=== PATIENT | female | born 1995 | race Caucasian/White ===

== ENCOUNTER 2020-12-25 14:46 | Emergency (ER) | payer SELFPAY ==
[2020-12-25 14:50] VITALS: PULSE 83; O2SAT 96
[2020-12-25 14:53] VITALS: BP 127/67; PULSE 78; RESP 20; TEMP 37.1; O2SAT 96; BMI 26.9
[2020-12-25 15:00] VITALS: BP 96/57; PULSE 77; O2SAT 95
--- NOTE | 2020-12-25 15:12 | ED.NAVMDI ---
HPI - Nausea/Vomiting/Diarrhea General Chief complaint: Nausea/Vomiting/Diarrhea Stated complaint: 18 wks needs medication Time Seen by Provider: 12/25/20 14:50 Source: patient Mode of arrival: Ambulatory Limitations: no limitations History of Present Illness HPI Narrative: 25-year-old at 18 weeks gestational age. She currently is living in [place] and had to return urgently to the [facility] for a family matter and was not able to bring her nausea medicine with her on the plane. She states that Zofran has worked well in the past. With the 1st she she did have hyperemesis gravidarum. She states that this is certainly better but she continues to vomit multiple times a day. She is asking for help in obtaining nausea medication. She describes no fevers, cough, chills, diarrhea. She does note active movement. She is voiding and stooling appropriately. No rashes. No palpitations and no syncope. Related Data Previous Rx's Medication Instructions Recorded norgestimate-ethinyl estradiol 1 tab PO QDAY #1 packet 07/23/18 0.18 mg/0.215mg/0.25mg-35 mcg(28)tablet docusate sodium 250 mg capsule 250 mg PO BEDTIME #30 cap 08/07/18 hydrocortisone 2.5 % topical cream 1 applictn MD BID-QID PRN #30 gram 08/07/18 with perineal applicator ondansetron 4 mg PO Q8H PRN #30 tab 12/25/20 Allergies Allergy/AdvReac Type Severity Reaction Status Date / Time Sulfa (Sulfonamide Allergy Unknown Verified 12/25/20 14:52 Antibiotics) Review of Systems Review of Systems Narrative: Remainder of complete review of systems is otherwise unremarkable except for that included in the HPI. Patient History Surgical History History of third molar tooth extraction Social History Smoking Status: Former smoker Smoking Status: Former smoker alcohol intake frequency: other Substance Use Type: does not use Exam Narrative Exam Narrative: General: Alert, appears fatigued but otherwise appropriate in no acute distress Respiratory: Able to speak in full sentences, no obvious respiratory distress Skin: No obvious rashes, warm and dry Neurologic: Grossly intact no obvious asymmetries or abnormalities Psych: appropriate insight and affect, cooperative Initial Vital Signs Initial Vital Signs: Vital Signs Pulse Rate 83 12/25/20 14:50 Pulse Oximetry 96 12/25/20 14:50 Course Orders Ordered: Discontinued Medications Ondansetron HCl (Ondansetron 4 Mg Odt) 4 mg SL NOW ONE Stop: 12/25/20 15:41 Last Admin: 12/25/20 15:48 Dose: 4 mg Documented by: EARNEST Vital Signs Vital signs: Vital Signs - 8 hr 12/25/20 14:50 12/25/20 14:53 12/25/20 15:00 Temperature 98.8 F Pulse Rate 83 78 77 Respiratory Rate 20 Blood Pressure 127/67 96/57 L Pulse Oximetry 96 96 95 12/25/20 15:30 Temperature Pulse Rate 71 Respiratory Rate Blood Pressure 101/57 L Pulse Oximetry 96 MDM - Nausea/Vomiting/Diarrhea MDM Narrative Medical decision making narrative: related nausea and asking for prescription for nausea medication. Her current medical care is in [facility] and she is in town only for the next 2 weeks. She is given a dose of zofran in the ER with good response. She is safe for home discharge Discharge Plan Departure Patient Disposition: Home Clinical Impression: Nausea and vomiting during Instructions: DI for Hyperemesis Gravidarum Activity Restrictions/Additional Instructions: Thank you for coming in I hope you feel better with the zofran/ondansetron to help with your nausea. I hope the rest of your goes well Prescriptions: New ondansetron 4 mg tablet,disintegrating 4 mg PO Q8H PRN (Reason: nausea and vomiting) Qty: 30 RF: 0 No Action norgestimate-ethinyl estradiol [Ortho Tri-Cyclen (28)] 0.18/0.215/0.25 mg-35 mcg (28) tablet 1 tab PO QDAY Qty: 1 RF: 6 docusate sodium 250 mg capsule 250 mg PO BEDTIME Qty: 30 RF: 3 hydrocortisone [Anusol-HC] 2.5 % cream with perineal applicator 1 applictn MD BID-QID PRN (Reason: hemorrhoids) Qty: 30 RF: 2
[2020-12-25 15:30] VITALS: BP 101/57; PULSE 71; O2SAT 96
[2020-12-25] MEDS: ONDANSETRON 4 MG ODT SL (15:48)
== END 2020-12-25 15:56 | disposition home or self-care (01) ==
PROVIDERS: Emergency Provider Emergency Medicine
DX: O26.892 Other specified pregnancy related conditions, second trimester (principal); R11.2 Nausea with vomiting, unspecified; Z3A.18 18 weeks gestation of pregnancy
CPT/HCPCS: 99282; 99283

== ENCOUNTER → 2024-03-15 10:37 | Outpatient (CLI) | payer OTHER, MEDICAID, SELFPAY | PROVIDERS: PCP Family Medicine; Referring Provider Nurse Practitioner Family; Visit Provider Nurse Practitioner Family | DX: J02.9 Acute pharyngitis, unspecified (principal) | CPT/HCPCS: 87070 ==

== ENCOUNTER → 2024-07-23 11:12 | Outpatient (CLI) | payer OTHER, SELFPAY ==
--- NOTE | 2024-07-23 11:13 | DI.MRI.S_ITS ---
PROCEDURE: MR HEAD/BRAIN WO/W CON INDICATIONS: Petit Mal, forgetfullness TECHNIQUE: Noncontrast axial T1 spin echo, axial T2 fast spin echo, sagittal and axial FLAIR, coronal T2 fast spin echo, axial gradient echo, axial diffusion and ADC through the brain. After the administration of contrast, axial and coronal and sagittal 3D VIBE or T1 spin echo with fat saturation through the brain. COMPARISON: None. FINDINGS: CSF Spaces: Basal cisterns are patent. No extra-axial fluid collections. Ventricles are normal in size and shape. Brain: No intracranial masses or hemorrhage. Enriquez/white matter interface is normal. Brainstem appears normal. Diffusion-weighted sequence is unremarkable without evidence of acute infarct. Normal intravascular flow voids are present. Auto text hippocampus Skull and face: Calvarial marrow is normal in signal. Orbits appear normal. Sinuses: Sinuses and mastoids appear clear. IMPRESSION: Normal MRI of the brain with and without contrast Approved by: Joaquin Gonzalez M.D. on 07/23/2024 at 16:55
== END ==
PROVIDERS: PCP Family Medicine; Referring Provider Family Medicine; Visit Provider Family Medicine
DX: G40.A09 Absence epileptic syndrome, not intractable, without status epilepticus (principal); R68.89 Other general symptoms and signs
CPT/HCPCS: 70553; A9579

== ENCOUNTER → 2024-10-07 08:30 | Outpatient (CLI) | payer OTHER, SELFPAY ==
[2024-10-07 09:24] LABS: Influenza A - CEPHEID Flu A NEGATIVE (NEGATIVE); Influenza B - CEPHEID Flu B NEGATIVE (NEGATIVE); Respiratory Syncytial Virus Negative (Negative)
[2024-10-07 09:30] LABS: COVID-19 CEPHEID 4-PLEX PCR Negative (Negative)
== END ==
PROVIDERS: PCP Family Medicine; Visit Provider Nurse Practitioner Family
DX: R05.1 Acute cough (principal)
CPT/HCPCS: 87635; 87400 ×2; 87420; 0241U

== ENCOUNTER → 2024-10-08 13:18 | Outpatient (CLI) | payer OTHER, SELFPAY ==
--- NOTE | 2024-10-08 13:19 | DI.RAD.S_ITS ---
PROCEDURE: XR CHEST 2V INDICATIONS: Cough TECHNIQUE: 2 views of the chest were acquired. COMPARISON: None. FINDINGS: Heart, mediastinum and pulmonary vascular: Heart is normal in size and configuration. Mediastinum is unremarkable. Pulmonary vascular is normal. Lungs: Small right lower lobe infiltrate appreciated Pleural spaces: Normal-no effusions or pneumothorax. Bones and soft tissues: Normal IMPRESSION: Small right lower lobe infiltrate Dictated by: Davey Hunt M.D. on 10/09/2024 at 7:45 Approved by: Davey Hunt M.D. on 10/09/2024 at 7:45
== END ==
PROVIDERS: PCP Family Medicine; Referring Provider Nurse Practitioner Family; Visit Provider Nurse Practitioner Family
DX: R05.9 Cough, unspecified (principal); R91.8 Other nonspecific abnormal finding of lung field
CPT/HCPCS: 71046

== ENCOUNTER 2025-02-05 13:00 | Outpatient (RCR) | payer OTHER, SELFPAY ==
--- NOTE | 2024-12-17 11:05 | PT.OIE ---
Current Diagnoses Dorsalgia, unspecified (12/17/24) Past Medical History (Last Updated 02/02/24 @ 20:34 by Lynn Tejada) Asthma (~2006) Irregular menstrual cycle (~2004) Kidney stones (~2001) Past Surgical History (Last Updated 02/02/24 @ 20:34 by Lynn Tejada) Anesthesia Broken arm (~2005) History of section (~06/09/21) History of third molar tooth extraction Hx of breast reduction, elective (~07/14/23) Visit Care Team Role Provider Type Yris Blackman MD Attending Provider Physician Family Provider Primary Care Provider Referring Provider Specialty: [facility] WAREHOUSE TEAM MEMBER Address: [address] [place] [address], [facility] Email: [email or web address] Physical Therapy Initial Evaluation PT-OP-A Visit Information Start: 12/01/24 20:52 Freq: Status: Active Protocol: Document 12/17/24 09:04 MB (Rec: 12/17/24 09:44 MB Desktop) Out-Patient Physical Therapy Visit Information Visit Information Visit Type Initial Evaluation Visit Note 08/04 allowed visits for the year Pt is late to eval Visit Start Time 09:04 Visit Stop Time 09:43 Visit Number 1 Number of EDUCATOR SENIOR CLINICAL Visits 0 Evaluation Information Evaluation Date 12/17/24 PT-OP-B Current Condition Start: 12/01/24 20:52 Freq: Status: Active Protocol: Document 12/17/24 09:04 MB (Rec: 12/17/24 09:44 MB Desktop) Current Condition History of Current Condition Onset Date Years of left intrascapular pain Current Complaints Left intrascapular pain History of Current Condition Pt reports years of left intrascapular pain. She can stand up but has pain with sitting and has to lean forward or cross her right leg over her left. She had breast reduction to help 1-2 years ago and it helped a little bit . She has had no PT or other exercises. She does occ use a massager and does not use ice or heat. She uses icy hot. She is sleeping on left side mostly. She tends to put both hands up under her pillow. Pt usually carries her 3 y/o son on her left side. Pt denies headaches and she occ has different sensations in that area of her spine: water dripping on back, someone touching her back, less sensation. She occ gets a numbing down her arm to her elbow but never to her fingers . She is right handed. Pt states that she feels like she needs to pop her LB if standing too long and she also feels like she needs to pop her left shoulder and neck often when sitting. Treatment Goals Patient/Caregiver Goals To decrease pain PT-OP-C Subjective Start: 12/01/24 20:52 Freq: Status: Active Protocol: Document 12/17/24 09:04 MB (Rec: 12/17/24 09:44 MB Desktop) OP-PT Subjective Patient Comments Patient Comments See history of current condition PT-OP-J Posture/Palpation/Skin Start: 12/01/24 20:52 Freq: Status: Active Protocol: Document 12/17/24 09:04 MB (Rec: 12/17/24 09:44 MB Desktop) Posture Evaluation Comments Posture Comments Standing posture in socks: B rounded shoulders, greater on the left, more severe forward head for age though tragus is not too far in front of tragus given forward and rounded shoulder as well, increased thoracic kyphosis and tension in thoracic spine, increased sway back lower spine, left iliac crest is mildly higher than the right, increased valgus and overpronation right ankle. Cervical ROM in standing: extension 20 deg, flexion 35 deg, right rotation 60 deg and left rotation 50 deg, SB right 15 deg and left 20 deg. Right flexion and abduction shoulder AROM mildly stiffer than the left. Sitting thoracic rotation: B reduced and left rotation is about 10 deg more reduced than the right PT-OP-M Strength Start: 12/01/24 20:52 Freq: Status: Active Protocol: Document 12/17/24 09:04 MB (Rec: 12/17/24 09:44 MB Desktop) Shoulder Strength Shoulder Manual Muscle Testing Left Flexion 5 Normal Abduction (C5) 5 Normal External Rotation 5 Normal Internal Rotation 5 Normal Right Flexion 5 Normal Abduction (C5) 5 Normal External Rotation 5 Normal Internal Rotation 5 Normal Elbow/Forearm Strength Elbow and Forearm Manual Muscle Testing Bilateral Flexion (C6) 5 Normal Extension (C7) 5 Normal PT-OP-Q Treatments Start: 12/01/24 20:52 Freq: Status: Active Protocol: Document 12/17/24 09:04 MB (Rec: 12/17/24 09:44 MB Desktop) Manual Therapy Treatment Consent Patient gave verbal consent for manual Yes treatment Other Other Manual Treatments Pt supine with head and legs supported: STM and positional release B upper traps, grade II PA cervical mobs, positional release left ribs, STM left infra and levator, increased rib tension left upper ribs including first rib Self-Care/Home Management Treatment Education Patient Education Body Mechanics,Home Exercise Program,Joint Protection,Pain Management,Posture Other Education Ed pt on benefits of sleeping on side with proper pillow support under hand and between arms to help relax neck and intrascapular area, benefits of ice and heat, provided handout on how heavy is my head and discussed working on better posture to unweight/ unburden intrascapular and neck muscles, log rolling PT-OP-T Assessment and Plan Start: 12/01/24 20:52 Freq: Status: Active Protocol: Document 12/17/24 09:04 MB (Rec: 12/17/24 09:44 MB Desktop) Physical Therapy Assessment Rehab Potential Rehabilitation Potential Good Evaluation Complexity Number of Personal Factors/Comorbidities 1-2 Number of Body Systems Impaired 1-2 Clinical Presentation at Evaluation Evolving Impairments Impairments Pain,Posture,ROM,Sensation, Soft Tissue Mobility Goals Three Impairment Lack of HEP Refueling Ramp Supervisor Goal (LTG) Pt will perform progressive HEP with I including flexibility, breathing, self- massage, postural and strengthening exercises to improve symptomology. LTG Duration 8 weeks Two Impairment Decreased cervical and thoracic rotation Refueling Ramp Supervisor Goal (LTG) Pt will present with equal and pain-free B cervical and thoracic rotation AROM to improve scanning with driving and walking. LTG Duration 8 weeks One Impairment Left intrascapular pain Penitentiary Goal (LTG) Pt will report a 90% improvement in left intrascapular pain to improve quality of life. LTG Duration 8 weeks Assessment Summary Assessment Pt is a 29 y/o female presenting with postural changes including forward head , increased thoracic kyphosis, thoracic and rib stiffness in setting of long history of left intrascapular pain. Pt underwent breast reduction which did not alleviate symptoms in left scapular area when sitting. She often feels like and does pop her LB, left shoulder and cervical spine. Pt presents with decreased cervical and thoracic AROM and normal shoulder strength in range. She will benefit from manual, education and therapeutic exercise interventions to improve posture, flexibility and pain. Physical Therapy Plan Frequency and Duration Frequency of Treatment 1-2x/wk Duration of treatment (weeks) 8 Plan of Care Start Date 12/17/24 Plan of Care End Date 02/17/25 Therapeutic Interventions Therapeutic Interventions Home Exercise Program,Joint Mobilizations,Manual Therapy, Patient/Caregiver Education, Self-Care/Home Management, Sensory Integration,Soft Tissue Mobilization,Taping, Therapeutic Exercises Modalities Cold Pack/Ice Massage,Electric Stimulation,Hot Packs, Ultrasound Next Visit Focus/Plan Next Note Type Treatment Note Next Visit Plan Manual work and initiate thoracic mobilization like open book, try pool noodle for stretching over as well
--- NOTE | 2024-12-17 11:06 | PT.OPPOC ---
Physical, Occupational & Speech Therapy At [facility] Current Diagnoses Dorsalgia, unspecified (12/17/24) Visit Care Team Role Provider Type Yris Blackman MD Attending Provider Physician Family Provider Primary Care Provider Referring Provider Specialty: Family Practice MALT SPECIFICATIONS CONTROL ASSISTANT Address: [facility] [address] [facility] [place], [address] Email: [email or web address] Plan Of Care PT-OP-B Current Condition Start: 12/01/24 20:52 Freq: Status: Active Protocol: Document 12/17/24 09:04 MB (Rec: 12/17/24 09:44 MB Desktop) Current Condition History of Current Condition Onset Date Years of left intrascapular pain Current Complaints Left intrascapular pain History of Current Condition Pt reports years of left intrascapular pain. She can stand up but has pain with sitting and has to lean forward or cross her right leg over her left. She had breast reduction to help 1-2 years ago and it helped a little bit . She has had no PT or other exercises. She does occ use a massager and does not use ice or heat. She uses icy hot. She is sleeping on left side mostly. She tends to put both hands up under her pillow. Pt usually carries her 3 y/o son on her left side. Pt denies headaches and she occ has different sensations in that area of her spine: water dripping on back, someone touching her back, less sensation. She occ gets a numbing down her arm to her elbow but never to her fingers . She is right handed. Pt states that she feels like she needs to pop her LB if standing too long and she also feels like she needs to pop her left shoulder and neck often when sitting. Treatment Goals Patient/Caregiver Goals To decrease pain PT-OP-T Assessment and Plan Start: 12/01/24 20:52 Freq: Status: Active Protocol: Document 12/17/24 09:04 MB (Rec: 12/17/24 09:44 MB Desktop) Physical Therapy Assessment Rehab Potential Rehabilitation Potential Good Evaluation Complexity Number of Personal Factors/Comorbidities 1-2 Number of Body Systems Impaired 1-2 Clinical Presentation at Evaluation Evolving Impairments Impairments Pain,Posture,ROM,Sensation, Soft Tissue Mobility Goals Three Impairment Lack of HEP Sausage Smoker Goal (LTG) Pt will perform progressive HEP with I including flexibility, breathing, self- massage, postural and strengthening exercises to improve symptomology. LTG Duration 8 weeks Two Impairment Decreased cervical and thoracic rotation Sausage Smoker Goal (LTG) Pt will present with equal and pain-free B cervical and thoracic rotation AROM to improve scanning with driving and walking. LTG Duration 8 weeks One Impairment Left intrascapular pain Assisted Goal (LTG) Pt will report a 90% improvement in left intrascapular pain to improve quality of life. LTG Duration 8 weeks Assessment Summary Assessment Pt is a 29 y/o female presenting with postural changes including forward head , increased thoracic kyphosis, thoracic and rib stiffness in setting of long history of left intrascapular pain. Pt underwent breast reduction which did not alleviate symptoms in left scapular area when sitting. She often feels like and does pop her LB, left shoulder and cervical spine. Pt presents with decreased cervical and thoracic AROM and normal shoulder strength in range. She will benefit from manual, education and therapeutic exercise interventions to improve posture, flexibility and pain. Physical Therapy Plan Frequency and Duration Frequency of Treatment 1-2x/wk Duration of treatment (weeks) 8 Plan of Care Start Date 12/17/24 Plan of Care End Date 02/17/25 Therapeutic Interventions Therapeutic Interventions Home Exercise Program,Joint Mobilizations,Manual Therapy, Patient/Caregiver Education, Self-Care/Home Management, Sensory Integration,Soft Tissue Mobilization,Taping, Therapeutic Exercises Modalities Cold Pack/Ice Massage,Electric Stimulation,Hot Packs, Ultrasound Next Visit Focus/Plan Next Note Type Treatment Note Next Visit Plan Manual work and initiate thoracic mobilization like open book, try pool noodle for stretching over as well Plan of Care Dates Plan of Care Start Date 12/17/24 Plan of Care End Date 02/17/25 Electronically Signed by: Alivia Roberts PT 12/17/24 0841 If you are in agreement with this Plan of Care, please return a signed and dated copy. I have reviewed this Plan of Care and certify that the skilled therapy services above are required to meet the patient?s needs. Physician Signature Date Printed Name and Credentials Clinical Instructor Signature Printed Name and Credentials
--- NOTE | 2024-12-25 16:15 | PT.OTN ---
Current Diagnoses Dorsalgia, unspecified (12/17/24) Physical Therapy Treatment Note PT-OP-A Visit Information Start: 12/01/24 20:52 Freq: Status: Active Protocol: Document 12/25/24 15:31 MB (Rec: 12/25/24 16:11 MB Desktop) Out-Patient Physical Therapy Visit Information Visit Information Visit Type Treatment Note Visit Note 08/04 allowed visits for the year Visit Start Time 15:31 Visit Stop Time 16:11 Visit Number 2 Number of ORTHOPEDIC NURSE Visits 0 Evaluation Information Evaluation Date 12/17/24 PT-OP-B Current Condition Start: 12/01/24 20:52 Freq: Status: Active Protocol: Document 12/17/24 09:04 MB (Rec: 12/17/24 09:44 MB Desktop) Current Condition History of Current Condition Onset Date Years of left intrascapular pain Current Complaints Left intrascapular pain History of Current Pt reports years of left intrascapular pain. She can Condition stand up but has pain with sitting and has to lean forward or cross her right leg over her left. She had breast reduction to help 1-2 years ago and it helped a little bit. She has had no PT or other exercises. She does occ use a massager and does not use ice or heat. She uses icy hot. She is sleeping on left side mostly. She tends to put both hands up under her pillow. Pt usually carries her 3 y/o son on her left side. Pt denies headaches and she occ has different sensations in that area of her spine: water dripping on back, someone touching her back, less sensation. She occ gets a numbing down her arm to her elbow but never to her fingers. She is right handed. Pt states that she feels like she needs to pop her LB if standing too long and she also feels like she needs to pop her left shoulder and neck often when sitting. Treatment Goals Patient/Caregiver To decrease pain Goals PT-OP-C Subjective Start: 12/01/24 20:52 Freq: Status: Active Protocol: Document 12/25/24 15:31 MB (Rec: 12/25/24 16:11 MB Desktop) OP-PT Subjective Patient Comments Patient Comments Pt felt good after the eval and she is working on her sleeping position. PT-OP-J Posture/Palpation/Skin Start: 12/01/24 20:52 Freq: Status: Active Protocol: Document 12/17/24 09:04 MB (Rec: 12/17/24 09:44 MB Desktop) Posture Evaluation Comments Posture Comments Standing posture in socks: B rounded shoulders, greater on the left, more severe forward head for age though tragus is not too far in front of tragus given forward and rounded shoulder as well, increased thoracic kyphosis and tension in thoracic spine, increased sway back lower spine, left iliac crest is mildly higher than the right, increased valgus and overpronation right ankle. Cervical ROM in standing: extension 20 deg, flexion 35 deg, right rotation 60 deg and left rotation 50 deg, SB right 15 deg and left 20 deg. Right flexion and abduction shoulder AROM mildly stiffer than the left. Sitting thoracic rotation: B reduced and left rotation is about 10 deg more reduced than the right PT-OP-M Strength Start: 12/01/24 20:52 Freq: Status: Active Protocol: Document 12/17/24 09:04 MB (Rec: 12/17/24 09:44 MB Desktop) Shoulder Strength Shoulder Manual Muscle Testing Left Flexion 5 Normal Abduction (C5) 5 Normal External Rotation 5 Normal Internal Rotation 5 Normal Right Flexion 5 Normal Abduction (C5) 5 Normal External Rotation 5 Normal Internal Rotation 5 Normal Elbow/Forearm Strength Elbow and Forearm Manual Muscle Testing Bilateral Flexion (C6) 5 Normal Extension (C7) 5 Normal PT-OP-Q Treatments Start: 12/01/24 20:52 Freq: Status: Active Protocol: Document 12/25/24 15:31 MB (Rec: 12/25/24 16:11 MB Desktop) Therapeutic Exercises Supine Exercises Open book Supine Exercise Name HEP and handout given today Side bilateral Reps/Minutes 5 reps on each side today Pect stretch over pool noodle or foam roller Supine Exercise Name HEP and handout given today Comments Ed for pelvic tilt and knees bent Manual Therapy Treatment Consent Patient gave verbal Yes consent for manual treatment Other Other Manual Pt prone: rib recoil muscle energy technique in prone, Treatments scapular mobs, STM B upper traps and infra, TrP left subscap and B upper traps. Pt supine: STM right greater than left pect major, STM B SCM, more on the right, suboccipital release PT-OP-T Assessment and Plan Start: 12/01/24 20:52 Freq: Status: Active Protocol: Document 12/25/24 15:31 MB (Rec: 12/25/24 16:11 MB Desktop) Physical Therapy Assessment Rehab Potential Rehabilitation Good Potential Evaluation Complexity Number of Personal 1-2 Factors/ Comorbidities Number of Body 1-2 Systems Impaired Clinical Evolving Presentation at Evaluation Impairments Impairments Pain,Posture,ROM,Sensation,Soft Tissue Mobility Goals Three Impairment Lack of HEP Mcc Goal (LTG) Pt will perform progressive HEP with I including flexibility, breathing, self-massage, postural and strengthening exercises to improve symptomology. LTG Duration 8 weeks Two Impairment Decreased cervical and thoracic rotation Mcc Goal (LTG) Pt will present with equal and pain-free B cervical and thoracic rotation AROM to improve scanning with driving and walking. LTG Duration 8 weeks One Impairment Left intrascapular pain Sail Finisher Machine Goal (LTG) Pt will report a 90% improvement in left intrascapular pain to improve quality of life. LTG Duration 8 weeks Assessment Summary Assessment Initiated manual work today and exercises and pt tolerates well. Physical Therapy Plan Frequency and Duration Frequency of 1-2x/wk Treatment Duration of 8 treatment (weeks) Plan of Care Start 12/17/24 Date Plan of Care End 02/17/25 Date Therapeutic Interventions Therapeutic Home Exercise Program,Joint Mobilizations,Manual Interventions Therapy,Patient/Caregiver Education,Self-Care/Home Management,Sensory Integration,Soft Tissue Mobilization ,Taping,Therapeutic Exercises Modalities Cold Pack/Ice Massage,Electric Stimulation,Hot Packs, Ultrasound Next Visit Focus/Plan Next Note Type Treatment Note Next Visit Plan Con't manual work and progress intrascapular and shoulder strengthening with band, over pool noodle or foam roller and also standing, consider racquet ball massage against wall, consider anterior neck stretch, upper cervical isometric and anterior neck stretching
--- NOTE | 2025-01-01 14:27 | PT.OTN ---
Current Diagnoses Dorsalgia, unspecified (01/01/25) Physical Therapy Treatment Note PT-OP-A Visit Information Start: 12/01/24 20:52 Freq: Status: Active Protocol: Document 01/01/25 13:43 MB (Rec: 01/01/25 14:26 MB Desktop) Out-Patient Physical Therapy Visit Information Visit Information Visit Type Treatment Note Visit Note 3/12 allowed visits for the year Visit Start Time 13:43 Visit Stop Time 14:23 Visit Number 3 Number of STAKING ENGINEER Visits 0 Evaluation Information Evaluation Date 12/17/24 PT-OP-B Current Condition Start: 12/01/24 20:52 Freq: Status: Active Protocol: Document 12/17/24 09:04 MB (Rec: 12/17/24 09:44 MB Desktop) Current Condition History of Current Condition Onset Date Years of left intrascapular pain Current Complaints Left intrascapular pain History of Current Pt reports years of left intrascapular pain. She can Condition stand up but has pain with sitting and has to lean forward or cross her right leg over her left. She had breast reduction to help 1-2 years ago and it helped a little bit. She has had no PT or other exercises. She does occ use a massager and does not use ice or heat. She uses icy hot. She is sleeping on left side mostly. She tends to put both hands up under her pillow. Pt usually carries her 3 y/o son on her left side. Pt denies headaches and she occ has different sensations in that area of her spine: water dripping on back, someone touching her back, less sensation. She occ gets a numbing down her arm to her elbow but never to her fingers. She is right handed. Pt states that she feels like she needs to pop her LB if standing too long and she also feels like she needs to pop her left shoulder and neck often when sitting. Treatment Goals Patient/Caregiver To decrease pain Goals PT-OP-C Subjective Start: 12/01/24 20:52 Freq: Status: Active Protocol: Document 01/01/25 13:43 MB (Rec: 01/01/25 14:26 MB Desktop) OP-PT Subjective Patient Comments Patient Comments Pt is feeling sore after using her massager. PT-OP-J Posture/Palpation/Skin Start: 12/01/24 20:52 Freq: Status: Active Protocol: Document 12/17/24 09:04 MB (Rec: 12/17/24 09:44 MB Desktop) Posture Evaluation Comments Posture Comments Standing posture in socks: B rounded shoulders, greater on the left, more severe forward head for age though tragus is not too far in front of tragus given forward and rounded shoulder as well, increased thoracic kyphosis and tension in thoracic spine, increased sway back lower spine, left iliac crest is mildly higher than the right, increased valgus and overpronation right ankle. Cervical ROM in standing: extension 20 deg, flexion 35 deg, right rotation 60 deg and left rotation 50 deg, SB right 15 deg and left 20 deg. Right flexion and abduction shoulder AROM mildly stiffer than the left. Sitting thoracic rotation: B reduced and left rotation is about 10 deg more reduced than the right PT-OP-M Strength Start: 12/01/24 20:52 Freq: Status: Active Protocol: Document 12/17/24 09:04 MB (Rec: 12/17/24 09:44 MB Desktop) Shoulder Strength Shoulder Manual Muscle Testing Left Flexion 5 Normal Abduction (C5) 5 Normal External Rotation 5 Normal Internal Rotation 5 Normal Right Flexion 5 Normal Abduction (C5) 5 Normal External Rotation 5 Normal Internal Rotation 5 Normal Elbow/Forearm Strength Elbow and Forearm Manual Muscle Testing Bilateral Flexion (C6) 5 Normal Extension (C7) 5 Normal PT-OP-Q Treatments Start: 12/01/24 20:52 Freq: Status: Active Protocol: Document 01/01/25 13:43 MB (Rec: 01/01/25 14:26 MB Desktop) Therapeutic Exercises Standing Exercises Anterior neck stretch Standing Exercise HEP and handout provided today Name Other Exercises 6 foam roller exercises Other Exercise Name HEP and handout provided today Side bilateral Reps/Minutes Many reps of AROM and active stretch for pect Comments Shoulder flexion, hor abd, 1/2 X, pect stretch Manual Therapy Treatment Consent Patient gave verbal Yes consent for manual treatment Other Other Manual Pt prone: rib recoil muscle energy technique in prone, Treatments scapular mobs, STM B upper traps and infra, TrP left subscap, upper traps and infra. Pt supine: B pect major STM PT-OP-T Assessment and Plan Start: 12/01/24 20:52 Freq: Status: Active Protocol: Document 06/11/25 13:43 MB (Rec: 01/01/25 14:26 MB Desktop) Physical Therapy Assessment Rehab Potential Rehabilitation Good Potential Evaluation Complexity Number of Personal 1-2 Factors/ Comorbidities Number of Body 1-2 Systems Impaired Clinical Evolving Presentation at Evaluation Impairments Impairments Pain,Posture,ROM,Sensation,Soft Tissue Mobility Goals Three Impairment Lack of HEP Alf Goal (LTG) Pt will perform progressive HEP with I including flexibility, breathing, self-massage, postural and strengthening exercises to improve symptomology. LTG Duration 8 weeks Two Impairment Decreased cervical and thoracic rotation Deburring Technician Goal (LTG) Pt will present with equal and pain-free B cervical and thoracic rotation AROM to improve scanning with driving and walking. LTG Duration 8 weeks One Impairment Left intrascapular pain Alf Goal (LTG) Pt will report a 90% improvement in left intrascapular pain to improve quality of life. LTG Duration 8 weeks Assessment Summary Assessment Progressed thoracic and shoulder range exercises today and ongoing discussion about posture. Physical Therapy Plan Frequency and Duration Frequency of 1-2x/wk Treatment Duration of 8 treatment (weeks) Plan of Care Start 12/17/24 Date Plan of Care End 02/17/25 Date Therapeutic Interventions Therapeutic Home Exercise Program,Joint Mobilizations,Manual Interventions Therapy,Patient/Caregiver Education,Self-Care/Home Management,Sensory Integration,Soft Tissue Mobilization ,Taping,Therapeutic Exercises Modalities Cold Pack/Ice Massage,Electric Stimulation,Hot Packs, Ultrasound Next Visit Focus/Plan Next Note Type Treatment Note Next Visit Plan Consider chin tuck with scap retraction against pool noodle vertical on wall, Progress exercises over foam roller with band: flexion with band looped around wrist , shoulder ER, horizontal abd, PNF 1/2 X, con't manual work, progress core and other strengthening in standing , consider body blade, con't manual work, consider gentle cervical band exercise for chin tuck/cervical extension, consider thoracic mobility with 6 foam roller horizontal against back
--- NOTE | 2025-01-07 11:30 | PT.OTN ---
Current Diagnoses Dorsalgia, unspecified (01/07/25) Physical Therapy Treatment Note PT-OP-A Visit Information Start: 12/01/24 20:52 Freq: Status: Active Protocol: Document 01/07/25 10:48 MB (Rec: 01/07/25 11:20 MB Desktop) Out-Patient Physical Therapy Visit Information Visit Information Visit Type Treatment Note Visit Note 4/12 allowed visits for the year Visit Start Time 10:48 Visit Stop Time 11:28 Visit Number 4 Number of WILDLAND FIRE FIGHTER Visits 0 Evaluation Information Evaluation Date 12/17/24 PT-OP-B Current Condition Start: 12/01/24 20:52 Freq: Status: Active Protocol: Document 12/17/24 09:04 MB (Rec: 12/17/24 09:44 MB Desktop) Current Condition History of Current Condition Onset Date Years of left intrascapular pain Current Complaints Left intrascapular pain History of Current Pt reports years of left intrascapular pain. She can Condition stand up but has pain with sitting and has to lean forward or cross her right leg over her left. She had breast reduction to help 1-2 years ago and it helped a little bit. She has had no PT or other exercises. She does occ use a massager and does not use ice or heat. She uses icy hot. She is sleeping on left side mostly. She tends to put both hands up under her pillow. Pt usually carries her 3 y/o son on her left side. Pt denies headaches and she occ has different sensations in that area of her spine: water dripping on back, someone touching her back, less sensation. She occ gets a numbing down her arm to her elbow but never to her fingers. She is right handed. Pt states that she feels like she needs to pop her LB if standing too long and she also feels like she needs to pop her left shoulder and neck often when sitting. Treatment Goals Patient/Caregiver To decrease pain Goals PT-OP-C Subjective Start: 12/01/24 20:52 Freq: Status: Active Protocol: Document 01/07/25 10:48 MB (Rec: 01/07/25 11:20 MB Desktop) OP-PT Subjective Patient Comments Patient Comments Pt is feeling a little better. She feels like she can sit up a little bit longer. She isn't crossing her legs as much to stay sitting upright. PT-OP-J Posture/Palpation/Skin Start: 12/01/24 20:52 Freq: Status: Active Protocol: Document 12/17/24 09:04 MB (Rec: 12/17/24 09:44 MB Desktop) Posture Evaluation Comments Posture Comments Standing posture in socks: B rounded shoulders, greater on the left, more severe forward head for age though tragus is not too far in front of tragus given forward and rounded shoulder as well, increased thoracic kyphosis and tension in thoracic spine, increased sway back lower spine, left iliac crest is mildly higher than the right, increased valgus and overpronation right ankle. Cervical ROM in standing: extension 20 deg, flexion 35 deg, right rotation 60 deg and left rotation 50 deg, SB right 15 deg and left 20 deg. Right flexion and abduction shoulder AROM mildly stiffer than the left. Sitting thoracic rotation: B reduced and left rotation is about 10 deg more reduced than the right PT-OP-M Strength Start: 12/01/24 20:52 Freq: Status: Active Protocol: Document 12/17/24 09:04 MB (Rec: 12/17/24 09:44 MB Desktop) Shoulder Strength Shoulder Manual Muscle Testing Left Flexion 5 Normal Abduction (C5) 5 Normal External Rotation 5 Normal Internal Rotation 5 Normal Right Flexion 5 Normal Abduction (C5) 5 Normal External Rotation 5 Normal Internal Rotation 5 Normal Elbow/Forearm Strength Elbow and Forearm Manual Muscle Testing Bilateral Flexion (C6) 5 Normal Extension (C7) 5 Normal PT-OP-Q Treatments Start: 12/01/24 20:52 Freq: Status: Active Protocol: Document 01/07/25 10:48 MB (Rec: 01/07/25 11:20 MB Desktop) Therapeutic Exercises Other Exercises 6 foam roller exercises Other Exercise Name HEP strengthening and handouts today Side bilateral Equipment Used Level 1 band for flexion and wood chop, level 2 band others Reps/Minutes Many reps Comments Shoulder flexion, wood chops, hor abd, shoulder ER, 1/2 X PNF Manual Therapy Treatment Consent Patient gave verbal Yes consent for manual treatment Other Other Manual Pt prone: rib recoil muscle energy technique in prone, Treatments scapular mobs, STM B upper traps and left infra, TrP left subscap, STM these muscles as well, pt supine: STM B pects PT-OP-T Assessment and Plan Start: 12/01/24 20:52 Freq: Status: Active Protocol: Document 01/07/25 10:48 MB (Rec: 01/07/25 11:20 MB Desktop) Physical Therapy Assessment Rehab Potential Rehabilitation Good Potential Evaluation Complexity Number of Personal 1-2 Factors/ Comorbidities Number of Body 1-2 Systems Impaired Clinical Evolving Presentation at Evaluation Impairments Impairments Pain,Posture,ROM,Sensation,Soft Tissue Mobility Goals Three Impairment Lack of HEP Grinding Supervisor Goal (LTG) Pt will perform progressive HEP with I including flexibility, breathing, self-massage, postural and strengthening exercises to improve symptomology. LTG Duration 8 weeks Two Impairment Decreased cervical and thoracic rotation Longterm Goal (LTG) Pt will present with equal and pain-free B cervical and thoracic rotation AROM to improve scanning with driving and walking. LTG Duration 8 weeks One Impairment Left intrascapular pain Grinding Supervisor Goal (LTG) Pt will report a 90% improvement in left intrascapular pain to improve quality of life. LTG Duration 8 weeks Assessment Summary Assessment Progressed strengthening over foam roller today. Con't per plan below. Physical Therapy Plan Frequency and Duration Frequency of 1-2x/wk Treatment Duration of 8 treatment (weeks) Plan of Care Start 12/17/24 Date Plan of Care End 02/17/25 Date Therapeutic Interventions Therapeutic Home Exercise Program,Joint Mobilizations,Manual Interventions Therapy,Patient/Caregiver Education,Self-Care/Home Management,Sensory Integration,Soft Tissue Mobilization ,Taping,Therapeutic Exercises Modalities Cold Pack/Ice Massage,Electric Stimulation,Hot Packs, Ultrasound Next Visit Focus/Plan Next Note Type Treatment Note Next Visit Plan Consider chin tuck with scap retraction against pool noodle vertical on wall, con't manual work, progress core and other strengthening in standing, consider UBE
--- NOTE | 2025-01-17 16:31 | PT-OP ANOTE ---
Pt called and cancelled 01/14/25 appt, no reason given, not called for follow up reason, has follow up with new established [facility] next week.
--- NOTE | 2025-01-29 14:14 | PT-OP ANOTE ---
Addendum entered and electronically signed by Ivett Harrington PTA 01/29/25 14:23: Pt has limitation of 12 visits with current insurance and stated over phone will have a new insurance end of the month and unsure if [facility] accepts it. She will ask schedulers when arrives today. Original Note: Pt did not show for 1345 appt today. SUPERVISOR PAPER COATING called her and she didn't realize had appt. SUPERVISOR PAPER COATING saw she did confirmed today's appt on the automated system. Pt stated her L shoulder and back feeling better and incorporating exercises per [facility] instruction. SUPERVISOR PAPER COATING offered opening on another PT's schedule today, pt agreeable to attend 1615 appt, will have childcare available to attend today. SUPERVISOR PAPER COATING chart reviewed and pt is due for more than 30 day progress note, noted cancelled last PT appt 01/21 when should have been completed.
--- NOTE | 2025-01-29 17:49 | PT.OTN ---
Current Diagnoses Dorsalgia, unspecified (01/29/25) Physical Therapy Treatment Note PT-OP-A Visit Information Start: 12/01/24 20:52 Freq: Status: Active Protocol: Document 01/29/25 16:08 HEEL WHEELER (Rec: 01/29/25 17:49 HEEL WHEELER Laptop) Out-Patient Physical Therapy Visit Information Visit Information Visit Type Progress Note Visit Note 12/02 allowed visits for the year Visit Start Time 16:18 Visit Stop Time 17:02 Visit Number 5 Number of STRATEGY CONSULTANT Visits 0 Evaluation Information Evaluation Date 12/17/24 PT-OP-B Current Condition Start: 12/01/24 20:52 Freq: Status: Active Protocol: Document 12/17/24 09:04 MB (Rec: 12/17/24 09:44 MB Desktop) Current Condition History of Current Condition Onset Date Years of left intrascapular pain Current Complaints Left intrascapular pain History of Current Pt reports years of left intrascapular pain. She can Condition stand up but has pain with sitting and has to lean forward or cross her right leg over her left. She had breast reduction to help 1-2 years ago and it helped a little bit. She has had no PT or other exercises. She does occ use a massager and does not use ice or heat. She uses icy hot. She is sleeping on left side mostly. She tends to put both hands up under her pillow. Pt usually carries her 3 y/o son on her left side. Pt denies headaches and she occ has different sensations in that area of her spine: water dripping on back, someone touching her back, less sensation. She occ gets a numbing down her arm to her elbow but never to her fingers. She is right handed. Pt states that she feels like she needs to pop her LB if standing too long and she also feels like she needs to pop her left shoulder and neck often when sitting. Treatment Goals Patient/Caregiver To decrease pain Goals PT-OP-C Subjective Start: 12/01/24 20:52 Freq: Status: Active Protocol: Document 01/29/25 16:08 HEEL WHEELER (Rec: 01/29/25 17:49 HEEL WHEELER Laptop) OP-PT Subjective Patient Comments Patient Comments Pt reports she feels driving has felt a little more comfortable, she is not as tense. Maintaining good posture is still an effort but is noticing and correcting more often. L shoulder feels crunchy but less pain. Pt reports she is still finding it difficult to consistently perform her HEP and even more difficult now that her kids are out of school for the summer. Pt also reports she had to cancel her last few visits d/t her husbands day off being changed and her not having someone to stay with kids during her appointments. She will be changing insurances at end of the month. Wants to continue PT PT-OP-J Posture/Palpation/Skin Start: 12/01/24 20:52 Freq: Status: Active Protocol: Document 12/17/24 09:04 MB (Rec: 12/17/24 09:44 MB Desktop) Posture Evaluation Comments Posture Comments Standing posture in socks: B rounded shoulders, greater on the left, more severe forward head for age though tragus is not too far in front of tragus given forward and rounded shoulder as well, increased thoracic kyphosis and tension in thoracic spine, increased sway back lower spine, left iliac crest is mildly higher than the right, increased valgus and overpronation right ankle. Cervical ROM in standing: extension 20 deg, flexion 35 deg, right rotation 60 deg and left rotation 50 deg, SB right 15 deg and left 20 deg. Right flexion and abduction shoulder AROM mildly stiffer than the left. Sitting thoracic rotation: B reduced and left rotation is about 10 deg more reduced than the right PT-OP-M Strength Start: 12/01/24 20:52 Freq: Status: Active Protocol: Document 12/17/24 09:04 MB (Rec: 12/17/24 09:44 MB Desktop) Shoulder Strength Shoulder Manual Muscle Testing Left Flexion 5 Normal Abduction (C5) 5 Normal External Rotation 5 Normal Internal Rotation 5 Normal Right Flexion 5 Normal Abduction (C5) 5 Normal External Rotation 5 Normal Internal Rotation 5 Normal Elbow/Forearm Strength Elbow and Forearm Manual Muscle Testing Bilateral Flexion (C6) 5 Normal Extension (C7) 5 Normal PT-OP-Q Treatments Start: 12/01/24 20:52 Freq: Status: Active Protocol: Document 01/29/25 16:08 HEEL WHEELER (Rec: 01/29/25 17:49 HEEL WHEELER Laptop) Therapeutic Exercises Sitting Exercises chin tucks Reps/Minutes x10 Comments TC Scap retract Side bilateral Reps/Minutes x10 Comments TC Manual Therapy Treatment Consent Patient gave verbal Yes consent for manual treatment Other Other Manual Self trigger point release of L rhomboid using trigger Treatments point cane, recommended purchasing one for self release at home for improved pain and muscle function. PT-OP-T Assessment and Plan Start: 12/01/24 20:52 Freq: Status: Active Protocol: Document 01/29/25 16:08 HEEL WHEELER (Rec: 01/29/25 17:49 HEEL WHEELER Laptop) Physical Therapy Assessment Goals Three Impairment Lack of HEP Concrete Fence Builder Goal (LTG) Pt will perform progressive HEP with I including flexibility, breathing, self-massage, postural and strengthening exercises to improve symptomology. 01/29-Progressing, pt reports currently performing on average 2x/wk but sometimes not at all during the week especially with 3 y/o out of school for summer. LTG Duration 8 weeks Two Impairment Decreased cervical and thoracic rotation Long-Term Goal (LTG) Pt will present with equal and pain-free B cervical and thoracic rotation AROM to improve scanning with driving and walking. [id number] free but continues to be a few degrees limited with L Cervical rotation compared to R and and L Thoracic rotation. LTG Duration 8 weeks One Impairment Left intrascapular pain Concrete Fence Builder Goal (LTG) Pt will report a 90% improvement in left intrascapular pain to improve quality of life. 01/29- Progressing, pt reports 70-80% improvement of L intrascapular pain. LTG Duration 8 weeks Assessment Summary Assessment Eval>01/29: Standing extension 20>35 deg, flexion 35>55 deg, right rotation 60>62 deg and left rotation 50>58 deg, SB right 15>30 deg and left 20>35 deg. Sitting thoracic rotation: B reduced and left rotation is about 15 deg more reduced than the right. Pt is demonstrating progress towards all goals but continues to be limited by low level L rhomboid pain, L shoulder weakness reporting feeling she always needs to support it on something, decreased posture, decreased L cervical and thoracic rotation, and consistency with HEP. Pt educated on importance of finding time and strategies to perform HEP consistently, postural awareness and performing chin tucks and scap retractions in car, and returning to PT consistently 2x /wk. Pt would benefit from continued skilled PT to progress towards meeting all LTGs. Physical Therapy Plan Frequency and Duration Frequency of 1-2x/wk Treatment Duration of 8 treatment (weeks) Plan of Care Start 12/17/24 Date Plan of Care End 02/17/25 Date Therapeutic Interventions Therapeutic Home Exercise Program,Joint Mobilizations,Manual Interventions Therapy,Patient/Caregiver Education,Self-Care/Home Management,Sensory Integration,Soft Tissue Mobilization ,Taping,Therapeutic Exercises Modalities Cold Pack/Ice Massage,Electric Stimulation,Hot Packs, Ultrasound Next Visit Focus/Plan Next Note Type Treatment Note Next Visit Plan Consider chin tuck with scap retraction against pool noodle vertical on wall, con't manual work, progress core and other strengthening in standing, consider UBE, B UT stretching, prone thread the needle
--- NOTE | 2025-02-05 17:15 | PT.OTN ---
Current Diagnoses Dorsalgia, unspecified (02/05/25) Physical Therapy Treatment Note PT-OP-A Visit Information Start: 12/01/24 20:52 Freq: Status: Active Protocol: Document 02/05/25 13:07 NBM (Rec: 02/05/25 17:15 NBM Laptop) Out-Patient Physical Therapy Visit Information Visit Information Visit Type Treatment Note Visit Note 01/02 allowed visits for the year Visit Start Time 13:07 Visit Stop Time 14:37 Visit Number 6 Number of SERVICE PROVIDER Visits 1 PT-OP-B Current Condition Start: 12/01/24 20:52 Freq: Status: Active Protocol: Document 12/17/24 09:04 MB (Rec: 12/17/24 09:44 MB Desktop) Current Condition History of Current Condition Onset Date Years of left intrascapular pain Current Complaints Left intrascapular pain History of Current Pt reports years of left intrascapular pain. She can Condition stand up but has pain with sitting and has to lean forward or cross her right leg over her left. She had breast reduction to help 1-2 years ago and it helped a little bit. She has had no PT or other exercises. She does occ use a massager and does not use ice or heat. She uses icy hot. She is sleeping on left side mostly. She tends to put both hands up under her pillow. Pt usually carries her 3 y/o son on her left side. Pt denies headaches and she occ has different sensations in that area of her spine: water dripping on back, someone touching her back, less sensation. She occ gets a numbing down her arm to her elbow but never to her fingers. She is right handed. Pt states that she feels like she needs to pop her LB if standing too long and she also feels like she needs to pop her left shoulder and neck often when sitting. Treatment Goals Patient/Caregiver To decrease pain Goals PT-OP-C Subjective Start: 12/01/24 20:52 Freq: Status: Active Protocol: Document 02/05/25 13:07 NBM (Rec: 02/05/25 17:15 NBM Laptop) OP-PT Subjective Patient Comments Patient Comments Christa tenderness in usual spot between L shoulder blade and spine which she uses massager for as able, but by middle of next day it hurts again. She hasn't gotten a foam roller yet because she's waiting to purchase it until after daughter's birthday libertarian this month. She really likes the X exercise on her back, and has been trying to carry 3 yo in front of her instead of just on L. When sitting like to eat she often rests elbow on table or arm rest and chin in hand. End of session reports her insurance changes Feb 21 (escorted to hotel front desk agent end of session to check if insurance accepted). PT-OP-J Posture/Palpation/Skin Start: 12/01/24 20:52 Freq: Status: Active Protocol: Document 12/17/24 09:04 MB (Rec: 12/17/24 09:44 MB Desktop) Posture Evaluation Comments Posture Comments Standing posture in socks: B rounded shoulders, greater on the left, more severe forward head for age though tragus is not too far in front of tragus given forward and rounded shoulder as well, increased thoracic kyphosis and tension in thoracic spine, increased sway back lower spine, left iliac crest is mildly higher than the right, increased valgus and overpronation right ankle. Cervical ROM in standing: extension 20 deg, flexion 35 deg, right rotation 60 deg and left rotation 50 deg, SB right 15 deg and left 20 deg. Right flexion and abduction shoulder AROM mildly stiffer than the left. Sitting thoracic rotation: B reduced and left rotation is about 10 deg more reduced than the right PT-OP-M Strength Start: 12/01/24 20:52 Freq: Status: Active Protocol: Document 12/17/24 09:04 MB (Rec: 12/17/24 09:44 MB Desktop) Shoulder Strength Shoulder Manual Muscle Testing Left Flexion 5 Normal Abduction (C5) 5 Normal External Rotation 5 Normal Internal Rotation 5 Normal Right Flexion 5 Normal Abduction (C5) 5 Normal External Rotation 5 Normal Internal Rotation 5 Normal Elbow/Forearm Strength Elbow and Forearm Manual Muscle Testing Bilateral Flexion (C6) 5 Normal Extension (C7) 5 Normal PT-OP-Q Treatments Start: 12/01/24 20:52 Freq: Status: Active Protocol: Document 02/05/25 13:07 NBM (Rec: 02/05/25 17:15 NBM Laptop) Therapeutic Exercises Supine Exercises Core Supine Exercise Name added to HEP: 1. TrA w/ PPT 2. alt BKFO 3. alt mal flex Side bilateral Equipment Used w and wo full foam roller, i/s for monitoring TrA medial to ASIS Comments focus on TrA activation and breath. L mal discomfort/ range improves w/ PPT scapular setting Supine Exercise Name 1. scap setting 2. scap retractions Comments hooklying: reaching hands palms down towards feet ( consider for sleeping) Sitting Exercises chin tucks Reps/Minutes x10 Comments TC Scap retract Side bilateral Reps/Minutes x10 Comments TC Standing Exercises Posterior neck stretch Standing Exercise chin tuck to initiate, then gentle nose towads chest Name Reps/Minutes 20 s Comments positive feedback response Other Exercises 6 foam roller exercises Other Exercise Name HEP review w/ TrA and PPT on full foam roller Side bilateral Resistance Level 1 band for flexion and wood chop, level 2 band others Equipment Used self-monitoring TrA and breathwork Reps/Minutes Many reps Comments Mal flex mod to no resistance, wood chops, hor abd, shoulder ER, 1/2 X PNF Therapeutic Activity Therapeutic Activity sleeping ergonomics Name pt reports sidesleeping in position with hands curled in Comments pt i/s in option of hooklying positioning with scapular setting and thumbs placed under lower buttocks - reports improved comfort. log roll Name pt demos supine to long sit Comments Pt i/s in logroll method for in/out of bed: initiate chin tuck first. x4 Self-Care/Home Management Treatment Education Patient Education Body Mechanics,Home Exercise Program,Joint Protection, Pain Management,Posture Other Education -Verbal i/s in self-STM w/ tennis ball to L rhomboids. Core edu to pt with visual aids for TrA m. anatomy and interrelationship with diaphragm and pelvic floor, and importance of not breath holding. I/s to pt for self- monitoring TrA activation medial to ASIS, and how to incorporate TrA activation and breathwork into current HEP. Option of substituting full foam roller with pool noodle or rolled up blankets/towels/sheets as needed. Added to HEP w/ TrA and PPT in hooklying: TrA w/ PPT 10 x2 breathcycle hold; BKFO; Alt shoulder flexion. Postural education with mirror for scapular setting and chin tuck 3 min. PT-OP-T Assessment and Plan Start: 12/01/24 20:52 Freq: Status: Active Protocol: Document 02/05/25 13:07 NBM (Rec: 02/05/25 17:15 NBM Laptop) Physical Therapy Assessment Goals Three Impairment Lack of HEP Fci Goal (LTG) Pt will perform progressive HEP with I including flexibility, breathing, self-massage, postural and strengthening exercises to improve symptomology. 01/29-Progressing, pt reports currently performing on average 2x/wk but sometimes not at all during the week especially with 2 y/o out of school for summer. LTG Duration 8 weeks Two Impairment Decreased cervical and thoracic rotation Fci Goal (LTG) Pt will present with equal and pain-free B cervical and thoracic rotation AROM to improve scanning with driving and walking. [id number]-[id number] free but continues to be a few degrees limited with L Cervical rotation compared to R and and L Thoracic rotation. LTG Duration 8 weeks One Impairment Left intrascapular pain Fci Goal (LTG) Pt will report a 90% improvement in left intrascapular pain to improve quality of life. 01/29- Progressing, pt reports 70-80% improvement of L intrascapular pain. LTG Duration 8 weeks Assessment Summary Assessment Treatment focus on posture and core education with incorporation into body mechanics and HEP. Core edu to pt with visual aids for TrA m. anatomy and interrelationship with diaphragm and pelvic floor, and importance of not breath holding. I/s to pt for self- monitoring TrA activation medial to ASIS, and how to incorporate TrA activation and breathwork into current HEP. Pt demos improved self awareness and correction of breathholding and TrA activation w/ HEP, and improved standing posture, and log roll method. Added to HEP w/ TrA and PPT in hooklying: TrA w/ PPT 10 x2 breathcycle hold; BKFO; Alt shoulder flexion. L shoulder flexion modified from resistance band to none, and discomfort and pain improves with cues for PPT in hooklying on foam roller. Physical Therapy Plan Frequency and Duration Frequency of 1-2x/wk Treatment Duration of 8 treatment (weeks) Plan of Care Start 12/17/24 Date Plan of Care End 02/17/25 Date Therapeutic Interventions Therapeutic Home Exercise Program,Joint Mobilizations,Manual Interventions Therapy,Patient/Caregiver Education,Self-Care/Home Management,Sensory Integration,Soft Tissue Mobilization ,Taping,Therapeutic Exercises Modalities Cold Pack/Ice Massage,Electric Stimulation,Hot Packs, Ultrasound Next Visit Focus/Plan Next Note Type Treatment Note Next Visit Plan Consider chin tuck with scap retraction against pool noodle vertical on wall, con't manual work, progress core and other strengthening in standing, consider UBE, B UT stretching, prone thread the needle
--- NOTE | 2025-04-03 17:31 | PT.OPDS ---
Pt's last session on 02/05 with no follow up appointment made and POC 02/17. Will D/C PT, pt will need new doctor's referral to return to PT in the future. Current Diagnoses Dorsalgia, unspecified (02/05/25) Visit Care Team Role Provider Type Yris Blackman MD Attending Provider Physician Family Provider Primary Care Provider Referring Provider Specialty: Family Practice REFRIGERATOR CRATER Address: [address] [place] [address], [id number] Email: [email or web address] Visit Number Visit Number 6 Discharge Summary PT-OP-A Visit Information Start: 12/01/24 20:52 Freq: Status: Active Protocol: Document 02/05/25 13:07 NBM (Rec: 02/05/25 17:15 NBM Laptop) Out-Patient Physical Therapy Visit Information Visit Information Visit Type Treatment Note Visit Note 01/02 allowed visits for the year Visit Start Time 13:07 Visit Stop Time 14:37 Visit Number 6 Number of PHLEBOTOMY DIRECTOR Visits 1 PT-OP-B Current Condition Start: 12/01/24 20:52 Freq: Status: Active Protocol: Document 12/17/24 09:04 MB (Rec: 12/17/24 09:44 MB Desktop) Current Condition History of Current Condition Onset Date Years of left intrascapular pain Current Complaints Left intrascapular pain History of Current Pt reports years of left intrascapular pain. She can Condition stand up but has pain with sitting and has to lean forward or cross her right leg over her left. She had breast reduction to help 1-2 years ago and it helped a little bit. She has had no PT or other exercises. She does occ use a massager and does not use ice or heat. She uses icy hot. She is sleeping on left side mostly. She tends to put both hands up under her pillow. Pt usually carries her 3 y/o son on her left side. Pt denies headaches and she occ has different sensations in that area of her spine: water dripping on back, someone touching her back, less sensation. She occ gets a numbing down her arm to her elbow but never to her fingers. She is right handed. Pt states that she feels like she needs to pop her LB if standing too long and she also feels like she needs to pop her left shoulder and neck often when sitting. Treatment Goals Patient/Caregiver To decrease pain Goals PT-OP-C Subjective Start: 12/01/24 20:52 Freq: Status: Active Protocol: Document 02/05/25 13:07 NBM (Rec: 02/05/25 17:15 NBM Laptop) OP-PT Subjective Patient Comments Patient Comments Christa tenderness in usual spot between L shoulder blade and spine which she uses massager for as able, but by middle of next day it hurts again. She hasn't gotten a foam roller yet because she's waiting to purchase it until after daughter's birthday alliance party this month. She really likes the X exercise on her back, and has been trying to carry 2 yo in front of her instead of just on L. When sitting like to eat she often rests elbow on table or arm rest and chin in hand. End of session reports her insurance changes Feb 21 (escorted to motel front desk attendant end of session to check if insurance accepted). PT-OP-J Posture/Palpation/Skin Start: 12/01/24 20:52 Freq: Status: Active Protocol: Document 12/17/24 09:04 MB (Rec: 12/17/24 09:44 MB Desktop) Posture Evaluation Comments Posture Comments Standing posture in socks: B rounded shoulders, greater on the left, more severe forward head for age though tragus is not too far in front of tragus given forward and rounded shoulder as well, increased thoracic kyphosis and tension in thoracic spine, increased sway back lower spine, left iliac crest is mildly higher than the right, increased valgus and overpronation right ankle. Cervical ROM in standing: extension 20 deg, flexion 35 deg, right rotation 60 deg and left rotation 50 deg, SB right 15 deg and left 20 deg. Right flexion and abduction shoulder AROM mildly stiffer than the left. Sitting thoracic rotation: B reduced and left rotation is about 10 deg more reduced than the right PT-OP-M Strength Start: 12/01/24 20:52 Freq: Status: Active Protocol: Document 12/17/24 09:04 MB (Rec: 12/17/24 09:44 MB Desktop) Shoulder Strength Shoulder Manual Muscle Testing Left Flexion 5 Normal Abduction (C5) 5 Normal External Rotation 5 Normal Internal Rotation 5 Normal Right Flexion 5 Normal Abduction (C5) 5 Normal External Rotation 5 Normal Internal Rotation 5 Normal Elbow/Forearm Strength Elbow and Forearm Manual Muscle Testing Bilateral Flexion (C6) 5 Normal Extension (C7) 5 Normal PT-OP-T Assessment and Plan Start: 12/01/24 20:52 Freq: Status: Active Protocol: Document 02/05/25 13:07 NBM (Rec: 02/05/25 17:15 NBM Laptop) Physical Therapy Assessment Goals Three Impairment Lack of HEP Equipment Maintenance Tech Goal (LTG) Pt will perform progressive HEP with I including flexibility, breathing, self-massage, postural and strengthening exercises to improve symptomology. 01/29-Progressing, pt reports currently performing on average 2x/wk but sometimes not at all during the week especially with 2 y/o out of school for summer. LTG Duration 8 weeks Two Impairment Decreased cervical and thoracic rotation Usp Goal (LTG) Pt will present with equal and pain-free B cervical and thoracic rotation AROM to improve scanning with driving and walking. 01/[id number]-[id number] free but continues to be a few degrees limited with L Cervical rotation compared to R and and L Thoracic rotation. LTG Duration 8 weeks One Impairment Left intrascapular pain Equipment Maintenance Tech Goal (LTG) Pt will report a 90% improvement in left intrascapular pain to improve quality of life. 01/29- Progressing, pt reports 70-80% improvement of L intrascapular pain. LTG Duration 8 weeks Assessment Summary Assessment Treatment focus on posture and core education with incorporation into body mechanics and HEP. Core edu to pt with visual aids for TrA m. anatomy and interrelationship with diaphragm and pelvic floor, and importance of not breath holding. I/s to pt for self- monitoring TrA activation medial to ASIS, and how to incorporate TrA activation and breathwork into current HEP. Pt demos improved self awareness and correction of breathholding and TrA activation w/ HEP, and improved standing posture, and log roll method. Added to HEP w/ TrA and PPT in hooklying: TrA w/ PPT 10 x2 breathcycle hold; BKFO; Alt shoulder flexion. L shoulder flexion modified from resistance band to none, and discomfort and pain improves with cues for PPT in hooklying on foam roller. Physical Therapy Plan Frequency and Duration Frequency of 1-2x/wk Treatment Duration of 8 treatment (weeks) Plan of Care Start 12/17/24 Date Plan of Care End 02/17/25 Date Therapeutic Interventions Therapeutic Home Exercise Program,Joint Mobilizations,Manual Interventions Therapy,Patient/Caregiver Education,Self-Care/Home Management,Sensory Integration,Soft Tissue Mobilization ,Taping,Therapeutic Exercises Modalities Cold Pack/Ice Massage,Electric Stimulation,Hot Packs, Ultrasound Next Visit Focus/Plan Next Note Type Treatment Note Next Visit Plan Consider chin tuck with scap retraction against pool noodle vertical on wall, con't manual work, progress core and other strengthening in standing, consider UBE, B UT stretching, prone thread the needle
== END 2025-04-08 08:51 | disposition home or self-care (01) ==
LOC: PHYS 13:00
PROVIDERS: Family Provider Family Medicine; PCP Family Medicine; Referring Provider Family Medicine; Visit Provider Family Medicine
DX: M54.9 Dorsalgia, unspecified (principal)
CPT/HCPCS: 97110; 97140; 97161; 97535